=== PATIENT | female | born 1965 | race Caucasian/White ===

== ENCOUNTER 2020-10-19 06:22 | Observation (INO) ==
[~2020-10-19 06:22] MED LIST: Buffered Lidocaine 1% SYRIN 1 ml INTRADERM ONE; Dexamethasone IV 4 MG/ML VIAL 1 ml VIAL IV SLOW PU ONE; Dexamethasone IV 4 MG/ML VIAL 1 ml VIAL ONE; Famotidine IV 10 MG/ML 2 ml VIAL (20 mg) IV ONE; Famotidine IV 10 MG/ML 2 ml VIAL (20 mg) ONE; Lactated Ringers 1000 ml BAG 1,000 ML IV SCH; ceFAZolin 2 GM PREMIX 2 GM/50 ML BAG ONE
[2020-10-19] MEDS ORDERED: Glycopyrrolate IV 0.2 MG/ML 1 ML VIAL ONE ×2 (07:04→08:42)
[2020-10-19] MEDS ORDERED: Lidocaine 2% PF 5 ML VIAL ONE (07:04)
[2020-10-19] MEDS ORDERED: Midazolam 2 mg/2 ml VIAL 1 mg/ml 2 ml VIAL (2 mg) ONE (07:04)
[2020-10-19] MEDS ORDERED: Ondansetron 4 mg VIAL 2 MG/ML 2 ml VIAL ONE (07:04)
[2020-10-19] MEDS ORDERED: Propofol 10 MG/ML 20 ML BTL ONE ×3 (07:04→09:47)
[2020-10-19] MEDS ORDERED: Ropivacaine 5 MG/ML 20 ML VIAL 0.5% (100 MG) ONE (07:09)
[2020-10-19] MEDS ORDERED: Naloxone 0.4 mg VIAL 0.4 mg/ml 1 ml VIAL IV PRN (07:53)
[2020-10-19] MEDS ORDERED: Prochlorperazine 5 mg/ml 2 ml VIAL (10 mg) IV PRN (07:53)
[2020-10-19] MEDS ORDERED: Acetaminophen IV 1 GM/100ML 1,000 MG/100 ML VIAL IVPB ONE (07:53)
[2020-10-19] MEDS ORDERED: Morphine 4 MG/ML VIAL (1 ml) IV PRN (07:53)
[2020-10-19] MEDS ORDERED: fentaNYL 100 mcg/2 ml 50 MCG/ML VIAL IV PRN (07:53)
[2020-10-19] MEDS ORDERED: Phenylephrine IV 10 MG/ML 1 ml VIAL ONE (08:39)
[2020-10-19] MEDS ORDERED: fentaNYL 100 mcg/2 ml 50 MCG/ML VIAL ONE (10:39)
[2020-10-19] MEDS ORDERED: Morphine 2 MG/ML SYRINGE IV PRN (10:51)
[2020-10-19] MEDS ORDERED: diPHENhydraMINE IV 50 MG/ML 1 ml VIAL (BENADRYL) IV PRN (10:51)
[2020-10-19] MEDS ORDERED: Lactulose 30 ml UDC PO PRN (10:51)
[2020-10-19] MEDS ORDERED: oxyCODONE/Acetamin 5/325 mg TAB PO PRN (10:51)
[2020-10-19] MEDS ORDERED: diPHENhydraMINE 25 mg TAB PO PRN (10:51)
[2020-10-19] MEDS ORDERED: Magnesium Hydroxide LIQ 30 ML UDC PO PRN (10:51)
[2020-10-19] MEDS ORDERED: Ondansetron ODT 4 mg TAB 4 MG TAB PO PRN (10:51)
[2020-10-19] MEDS ORDERED: Ondansetron 4 mg VIAL 2 MG/ML 2 ml VIAL IV PRN (10:51)
[2020-10-19] MEDS ORDERED: Acetaminophen IV 1 GM/100ML 100 ML ONE (10:58)
[2020-10-19] MEDS: Lactated Ringers 1000 ml BAG 1,000 ML IV SCH ×2 (12:47→22:25)
[2020-10-19] MEDS ORDERED: Lactated Ringers 500 ml BAG 500 ML IV ONE (14:00)
[2020-10-19] MEDS ORDERED: LACTATED RINGERS 500 ML BAG IV ONE (16:00)
[2020-10-19] MEDS: ceFAZolin 1 GM ADVAN 1 GM in NS 0.9% 50 ML 50 ML IVPB SCH (16:16)
[2020-10-19] MEDS ORDERED: CMCS: Progesterone MICRONIZ 200 (NF) CAP PO SCH (21:00)
[2020-10-19] MEDS: Magnesium Hydroxide LIQ 30 ML UDC PO SCH (21:53)
[2020-10-20] MEDS: ceFAZolin 1 GM ADVAN 1 GM in NS 0.9% 50 ML 50 ML IVPB SCH ×2 (01:21→08:34)
[2020-10-20 06:51] LABS: Hematocrit 28 % (35-47); Hemoglobin 9.8 g/dL (12.0-16.0); Mean Platelet Volume 8.2 fL (7.4-10.4); Platelet Count 181 10^3/uL (150-450)
[2020-10-20 07:09] LABS: Calcium 8.3 mg/dL (8.6-10.3); EGFR African American 111.4 (>60); EGFR Non-African American 92.1 (>60); Potassium 3.5 mmol/L (3.5-5.0)
[2020-10-20] MEDS: Magnesium Hydroxide LIQ 30 ML UDC PO SCH (08:34)
[2020-10-20] MEDS ORDERED: Vitamin THERAPEUTIC TAB PO SCH (09:00)
[2020-10-20] MEDS ORDERED: DULoxetine DR 20 mg CAP PO SCH (09:00)
[2020-10-20 11:21] VITALS: BP 98/53
== END 2020-10-20 12:54 | disposition home or self-care (01) ==
LOC: AA 06:22 → INTOOBSV 06:22 → SSU 10:51
PROVIDERS: ADMIT Orthopaedic Surgery Adult Reconstructive Orthopaedic Surgery; ATTEND Orthopaedic Surgery Adult Reconstructive Orthopaedic Surgery

== ENCOUNTER 2024-04-08 08:17 | Observation (INO) ==
[~2024-04-08 08:17] MED LIST changes: -Buffered Lidocaine 1% SYRIN 1 ml INTRADERM ONE; -Dexamethasone IV 4 MG/ML VIAL 1 ml VIAL IV SLOW PU ONE; -Dexamethasone IV 4 MG/ML VIAL 1 ml VIAL ONE; -Famotidine IV 10 MG/ML 2 ml VIAL (20 mg) IV ONE; -Famotidine IV 10 MG/ML 2 ml VIAL (20 mg) ONE; -Lactated Ringers 1000 ml BAG 1,000 ML IV SCH; +Lidocaine 2% PF 5 ML VIAL ONE; +Midazolam 2 mg/2 ml VIAL 1 mg/ml 2 ml VIAL (2 mg) ONE; +NS 0.45% 1000 ml BAG 1,000 ML IV SCH; +Naloxone 0.4 mg VIAL 0.4 mg/ml 1 ml VIAL IV PRN; +Ondansetron 4 mg VIAL 2 MG/ML 2 ml VIAL IV PRN; +Propofol 10 MG/ML 20 ML BTL ONE; +Rocuronium 50 mg VIAL 10 mg/ml 5 ml VIAL (50 mg) ONE; -ceFAZolin 2 GM PREMIX 2 GM/50 ML BAG ONE; +fentaNYL 100 mcg/2 ml 50 MCG/ML VIAL IV PRN; +fentaNYL 100 mcg/2 ml 50 MCG/ML VIAL ONE
[2024-04-08] MEDS ORDERED: ceFAZolin 2 GM PREMIX 2 GM/50 ML BAG ONE (08:41)
[2024-04-08] MEDS: Buffered Lidocaine 1% SYRIN 1 ml INTRADERM ONE (09:00)
[2024-04-08] MEDS: Lactated Ringers 1000 ml BAG 1,000 ML IV SCH ×2 (09:00→15:00)
[2024-04-08] MEDS: Scopolamine 1 mg/72hr PATCH TRANSDERM ONE (09:01)
[2024-04-08 09:29] LABS: Rapid COVID-19 Molecular Undetected (Undetected)
[2024-04-08] MEDS ORDERED: Ropivacaine 5 MG/ML 20 ML VIAL 0.5% (100 MG) ONE (10:39)
[2024-04-08] MEDS ORDERED: ROPIVACAINE 5 MG/ML 30 ML BTL (0.5%) ONE (10:40)
[2024-04-08] MEDS ORDERED: Dexamethasone IV 4 MG/ML VIAL 1 ml VIAL ONE (11:24)
[2024-04-08] MEDS ORDERED: Ondansetron 4 mg VIAL 2 MG/ML 2 ml VIAL ONE (11:24)
[2024-04-08] MEDS ORDERED: Propofol 10 MG/ML 20 ML BTL ONE (11:42)
[2024-04-08] MEDS ORDERED: Phenylephrine IV 10 MG/ML 1 ml VIAL ONE (11:42)
[2024-04-08] MEDS ORDERED: Lactulose 30 ml UDC PO PRN (13:30)
[2024-04-08] MEDS ORDERED: Ondansetron 4 mg VIAL 2 MG/ML 2 ml VIAL IV PRN (13:30)
[2024-04-08] MEDS ORDERED: Magnesium Hydroxide LIQ 30 ML UDC PO PRN (13:30)
[2024-04-08] MEDS ORDERED: Morphine 2 MG/ML SYRINGE IV PRN (13:30)
[2024-04-08] MEDS ORDERED: Ondansetron ODT 4 mg TAB 4 MG TAB PO PRN (13:30)
[2024-04-08] MEDS ORDERED: Calcium Carb (TUMS) 500 mg CHEW TAB PO PRN (13:30)
[2024-04-08] MEDS ORDERED: ESTRADIOL 0.025 MG/24 HR TOPICAL SCH (15:15)
[2024-04-08] MEDS: Acetaminophen IV 1 GM/100ML 1,000 MG/100 ML BAG IV ONE (15:15)
[2024-04-08] MEDS: Magnesium Hydroxide LIQ 30 ML UDC PO SCH (21:18)
[2024-04-08] MEDS: ceFAZolin 2 GM PREMIX 2 GM/50 ML BAG IV SCH (21:19)
[2024-04-08] MEDS: PROGESTERONE PO SCH (23:55)
[2024-04-09 06:15] LABS: Hematocrit 31.6 % (35-45); Mean Platelet Volume 7.9 fL (7.5-11.2); Platelet Count 203 10^3/uL (150-450)
[2024-04-09 06:33] LABS: Calcium 8.5 mg/dL (8.6-10.3); Creatinine, Serum 0.65 mg/dL (0.51-0.95); Potassium 3.7 mmol/L (3.5-5.0); eGFR CKD-EPI 103.3 (>60)
[2024-04-09] MEDS: DULoxetine DR 20 mg CAP PO SCH (08:15)
[2024-04-09] MEDS: Vitamin THERAPEUTIC TAB PO SCH (08:16)
[2024-04-09 09:59] VITALS: BP 105/72
== END 2024-04-09 13:25 | disposition home or self-care (01) ==
LOC: OR 08:17 → SSU 08:17 → EDSTATUS 08:45
PROVIDERS: ADMIT Orthopaedic Surgery Adult Reconstructive Orthopaedic Surgery; ATTEND Orthopaedic Surgery Adult Reconstructive Orthopaedic Surgery